=== PATIENT | male | born 1965 | race Caucasian/White ===

== ENCOUNTER 2016-09-09 10:52 | Emergency (ER) | payer MEDICAID, OTHER ==
[2016-09-09 11:20] VITALS: RESP 16
[2016-09-09 11:30] LABS: COLOR YELLOW; LEUKOCYTE ESTERASE,URINE NEGATIVE (NEGATIVE); NITRITE,URINE NEGATIVE (NEGATIVE); PH,URINE 5.5 (5.0-7.5)
[2016-09-09 11:47] LABS: BACTERIA TRACE /hpf (NONE SEEN); MUCUS 2+ /lpf (NONE-1+); RBC,URINE 0-1 /hpf (0-3); WBC,URINE 0-1 /hpf (0-3)
[2016-09-09] MEDS ORDERED: IBUPROFEN 600 MG TAB PO ONE (12:10)
--- NOTE | 2016-09-09 12:33 | UCPHY ---
[id number] 09/09/16 12:15 HPI/ROS: HPI: 50-year-old male presents to urgent care with chief concern left low back pain radiating into his left posterior thigh to his knee that onset 11 days ago after a slip and fall on the ice when he landed on flat ground and blood in his urine x1 episode this morning. He has been using ibuprofen for pain with minimal improvement. Pain is improved by ambulation, worse after sitting or in the morning. Denies weakness, numbness, or tingling of his left lower extremity. Reports 1 episode of isolated hematuria this morning. Denies fever , chills, nausea, vomiting, abdominal pain, unusual penile discharge, or lesions , or urinary burning. ROS:10 point review of systems is negative other than as stated in HPI (Dang Chicas) Physical Exam: Vital signs stable, reviewed by me Constitutional: Alert, calm, cooperative. No acute distress. HEENT: Head normocephalic. PERRLA, EOMI. No pallor or injection. TMs pearly- galarza without bulging or retraction. Nasal mucosa pink and moist. Pharynx without redness or evidence of tonsillar exudates. Neck: Supple, nontender. No midline tenderness. Respiratory: Breathing unlabored. Lungs clear to auscultation bilaterally. Cardiovascular: Heart rate regular. S1-S2. No murmur, rub, or gallop. DP/PT pulses 2+ bilaterally. Gastrointestinal: Abdomen soft, nontender. Bowel sounds normoactive x4 quadrants. : No suprapubic tenderness or CVA tenderness. Neuro: Patellar and Achilles DTRs 2+ bilaterally. Strength 5+ in all extremities. No point tenderness to palpation of thoracic spine. Moderate tenderness to palpation of lumbar spine. Left and right paraspinous muscles without tenderness to palpation. No evidence of radiculopathy on straight leg raise bilaterally. Sensation intact to soft and pinprick in all regions of both legs and feet bilaterally. Musculoskeletal: Range of motion inhibited to forward flexion, back extension , left lateral bend, and right lateral bend. (Dang Chicas) Constitutional: Initial Vital Signs Temperature (C) 36.8 C 09/09/16 11:11 Heart Rate 72 09/09/16 11:11 Respiratory Rate 16 09/09/16 11:11 Blood Pressure 154/85 H 09/09/16 11:11 O2 Sat (%) 97 09/09/16 11:11 O2 Delivery Mode Room Air Allergies/Adverse Reactions: Sulfa (Sulfonamide Antibiotics) Allergy (Intermediate, Verified 09/09/16 11:20) Hives Home Medications: Medication Instructions Recorded Hydrocodone/APAP /325 [Conway 1 tab PO Q4 PRN #14 tab 09/09/16 5/325 (*)] Klonopin 09/09/16 Methadone HCl 09/09/16 Medical Decision Making ED Course/Re-evaluation: This afebrile nontoxic 50-year-old male sustained a fall 11 days ago when he slipped on ice. He reports ongoing left low back discomfort that radiates into his posterior buttock and thigh. He has no radiculopathy. Reports an isolated episode of hematuria today. His urinalysis shows no blood and no red blood cells. There is no evidence of infection. He has moderate tenderness to palpation of the midline lumbar spine. I have recommended a CT to rule out vertebral body compression fracture. CT negative. I have counseled this patient regarding need for follow-up with primary care. He agrees to do so. (Dang Chicas) Urgent Care PA supervision Physician documentation: The patient was evaluated and managed by the physician preschool assistant teacher. My co- signature indicates that I have reviewed this chart and I agree with the findings and plan of care as documented. I am the secondary supervising physician. (John Heaton) Differential Diagnosis: Differential includes but is not limited to kidney contusion, kidney injury, vertebral body compression fracture, low back injury, malingering (Dang Chicas ) Departure - Departure Disposition: Home, Routine, Self-Care Clinical Impression: Low back pain radiating down leg Condition: Good Instructions: Acute Low Back Pain (ED) Additional Instructions: Plan: CT shows no evidence of a fracture. You do have degenerative changes that are not new however. You may use 600 mg of ibuprofen every 6 hours for fever, inflammation, or pain. Always take ibuprofen with food and stay well hydrated while taking. Do not exceed the maximum allowable dose in a 24 hour period which is 2400 mg. May use 1 Conway every 4 hours for more severe pain, will need to see primary care provider for further refills of this medication--Never drink or drive while taking this medication. This medication impairs decision making capacity so do not work or sign important documents while taking. This medication its constipating so drink plenty of fluids and consider an [id number] stool softener such as docusate sodium (Colace) while taking this medication. This medication has addictive properties. You should use the least amount for the shortest amount of time. [facility] ED and Urgent Care do not refill narcotic pain medication prescriptions. This is a hospital policy. You will need to follow up as indicated for recheck for further narcotic refills. Your urine showed no evidence of blood. Follow up with primary care in the next 1-2 days for recheck without fail--When you call to schedule appointment, please let the office know you are an "ER follow up" appointment" Referrals: Blas Laird MD [Primary Care Provider] - As per Instructions Stand Alone Forms: Work Excuse Prescriptions: Hydrocodone/APAP 5/325 [Conway 5/325 (*)] 1 tab PO Q4 PRN #14 tab PRN Reason: severe pain - PQRS PQRS Measurement: Not applicable (Dang Chicas)
[2016-09-09 13:48] VITALS: BP 138/84; PULSE 54; TEMP 98.4; O2SAT 96
--- NOTE | 2016-09-09 13:48 | CT ---
CT Lumbar Spine Without Contrast History: Midline tenderness continued after fall on ice 11 days ago. Technique: 1.25 mm helical images were obtained of the lumbar spine without contrast. Multiplanar ref ormation was performed. Radiation dose reduction technique was utilized. Findings: No evidence for acute fracture. There is disk height narrowing at L3-L4 and L4-L5. No signi ficant spondylolisthesis. L1-L2 level demonstrates a broad-based annular bulge causing mild spinal canal and bilateral neural f oraminal narrowing. L2-L3 level demonstrates a mild broad-based annular bulge and facet arthropathy causing mild spinal c anal narrowing. L3-L4 level demonstrates a broad-based annular bulge. Moderate facet arthropathy is seen bilaterally. This is causing moderate central spinal canal and bilateral lateral recess narrowing. There is moder ate bilateral neural foraminal narrowing. L4-L5 level demonstrates a broad-based annular bulge. Severe facet arthropathy is seen bilaterally. T his is causing severe central spinal canal and bilateral lateral recess narrowing. There is moderate bilateral neural foraminal narrowing. L5-S1 level demonstrates a broad-based annular bulge asymmetric posterior laterally to the left. This is causing moderate central spinal canal and left lateral recess narrowing. 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 No evidence for acute fracture. Results called to Dang Chicas NP.
== END 2016-09-09 13:48 | disposition home or self-care (01) ==
LOC: CED 10:52
DX: M54.5 Low back pain (principal); M79.605 Pain in left leg
CPT/HCPCS: 72131-PO; 81003-PO; 81015-PO; G0463-PO

== ENCOUNTER → 2017-01-03 | Outpatient (CLI) | payer OTHER | LOC: CIMAGING 12:51 | PROVIDERS: ATTEND Family Medicine | DX: R06.00 Dyspnea, unspecified (principal) | CPT/HCPCS: 71020-PO ==